=== PATIENT | female | born 1930 | race Caucasian/White ===

== ENCOUNTER 2017-03-10 01:25 | Emergency (ER) | payer OTHER, MEDICARE ==
[~2017-03-10 01:25] MED LIST: ATENOLOL25 M1 PO; ATENOLOL25 MG PO; AURALGAN 14 ML14 ML AD; BENAZEPRIL HYDR20 MG PO; CALTRATE 600 +1 EACH PO; CALTRATE 600 +1 TAB PO; COUMADIN3 M1 PO; COUMADIN6 M1 PO; FUROSEMIDE40 M1 PO; KLOR-CON M2020 ME1 PO; LASIX40 M1 PO; LISINOPRIL20 M1 PO; LOVASTATIN40 M1 PO; LOVASTATIN40 MG PO; METFORMIN HCL500 M3 PO; METFORMIN HCL500 MG PO; NORVASC 5MG TAB5 MG PO; PANTOPRAZOLE SO40 M1 PO; PANTOPRAZOLE SO40 MG PO; PROAIR HFA8.5 GM INH; Prinivil PO; SPIRIVA18 MCG INH; TENORMIN50 M1 PO; TRAMADOL HCL50 M1 PO; TRAMADOL HCL50 MG PO; VITAMIN D2000 UNIT PO; WARFARIN SOD2 MG PO; WARFARIN SODIUM1 M1 PO; WARFARIN SODIUM2 MG PO; [UNRECOGNIZED DRUG - OTHER]
[2017-03-10 01:29] VITALS: BP 172/96
--- NOTE | 2017-03-10 01:42 | ED DYSPNEA/ASTHMA COMPLAINT ---
History of Present Illness General Chief Complaint: Dyspnea (COPD, CHF, Other) Stated Complaint: BIBA SOB Source: patient, family, old records, EMS Exam Limitations: no limitations Vital Signs & Intake/Output Vital Signs & Intake/Output Vital Signs Date Time Temp Pulse Resp B/P Pulse O2 O2 Flow FiO2 Ox Delivery Rate 03/10 0134 Room Air 03/10 0129 97.8 66 20 172/96 96 Room Air Allergies Coded Allergies: No Known Allergies (03/10/17) Reconcile Medications Atenolol 25 MG TABLET 2 TAB PO QPM BP (Reported) Calcium Carbonate/Vitamin D3 (Caltrate 600 + D Tablet) 1 EACH TABLET 1 TAB PO DAILY SUPPLEMENT (Reported) Cholecalciferol (Vitamin D3) (Vitamin D) (Unknown Strength) CAPSULE 1 CAP PO DAILY SUPPLEMENT (Reported) Furosemide 40 MG TABLET 1 TAB PO QAM DIURETIC (Reported) Reason to Stop at ADM: POLA Lisinopril 20 MG TABLET 1 TAB PO QAM BP (Reported) Reason to Stop at ADM: POLA Lovastatin 40 MG TABLET 1 TAB PO DAILY CHOLESTEROL (Reported) with food Metformin HCl 500 MG TABLET 1 TAB PO DAILY DIABETES (Reported) Pantoprazole Sodium 40 MG TABLET.DR 1 TAB PO DAILY GI (Reported) Reason to Stop at ADM: CHANGED TO RANITIDINE Tiotropium [place] (Spiriva) 18 MCG CAP.W.DEV 1 CAP INH PRN RESPIRATORY ( Reported) Tramadol HCl 50 MG TABLET 1 TAB PO TID PRN PAIN (Reported) Reason to Stop at ADM: AMS Warfarin Sodium (Coumadin) 6 MG TABLET 1 TAB PO AD BLOOD THINNER (Reported) Reason to Stop at ADM: PER DAILY INR Core Measure Meds Pre-Hospital coumadin Triage Note: [facility] FOR SUDDEN ONSET SOB THAT WOKE HER FROM SLEEP. DENIES SOB ON ARRIVAL, O2 SAT 98% ON RA, DENIES CP/LÓPEZ/DIZZINESS. REQESTING TO GO BACK TO [facility]. LCTA BILATERALLY. Triage Nurses Notes Reviewed? yes Onset: Just prior to arrival Duration: minute(s):, constant, gone now Timing: recent history Severity: moderate Activities at Onset: sleep Prior Episodes/Possible Cause: occasional episodes Modifying Factors: Improves With: rest. LMP (ages 10-50): post menopausal : No Patient currently breastfeeds: No HPI: Prior to admission patient awoke unable to catch her breath now better. She denies fever chills nausea vomiting diarrhea abdominal pain chest pain headache dysuria rash bleeding. Past History Travel History Traveled to [place] past 21 day No Medical History Any Pertinent Medical History? see below for history Neurological: CVA, dementia EENT: cataracts, HARD OF HEARING Cardiovascular: AFIB Respiratory: NONE Gastrointestinal: hiatal hernia Hepatic: NONE Renal: NONE Musculoskeletal: degen joint disease, osteoarthritis, osteoporosis Psychiatric: depression Endocrine: diabetes Blood Disorders: NONE Cancer(s): NONE FUNDS TRANSFER CLERK/Reproductive: NONE Other Medical Hx: atrial fibrillation and status post ablation with pacemaker currently on warfarin, diabetes, CK D, stroke, osteoarthritis and hyperlipidemia History of MRSA: No History of VRE: No History of CDIFF: No Tetanus Vaccine: 04/20/13 Surgical History Surgical History: PACEMAKER Psychosocial History Who do you live with Daughter Services at Home None What is your primary language Lib[place] Tobacco Use: Quit >30 days ago Family History Family History, If Any: Relation not specified for: *No pertinent family history Hx Contributory? No Review of Systems Review of Systems Constitutional: Reports: no symptoms. EENTM: Reports: no symptoms. Respiratory: Reports: see HPI, short of breath. Cardiovascular: Reports: no symptoms. GI: Reports: no symptoms. Genitourinary: Reports: no symptoms. Musculoskeletal: Reports: no symptoms. Skin: Reports: no symptoms. Neurological/Psychological: Reports: no symptoms. Hematologic/Endocrine: Reports: no symptoms. Immunologic/Allergic: Reports: no symptoms. All Other Systems: Reviewed and Negative Physical Exam Physical Exam General Appearance: well developed/nourished, alert, awake, anxious, comfortable Head: atraumatic, normal appearance Eyes: Bilateral: normal appearance, PERRL, EOMI. Ears, Nose, Throat: normal pharynx, normal ENT inspection Neck: normal inspection, supple, full range of motion, no midline tenderness Respiratory: normal breath sounds, chest non-tender, no respiratory distress, quiet respiration, lungs clear Cardiovascular: regular rate/rhythm, normal peripheral pulses, norml femoral pulses equa Peripheral Pulses: 4+ carotid (R), 4+ carotid (L) Gastrointestinal: normal bowel sounds, soft, non-tender, no organomegaly Extremities: normal inspection, normal capillary refill, normal range of motion, no edema Neurologic/Psych: no motor/sensory deficits, awake, alert, normal mood/affect, termite helper II-XII nml as tested Skin: intact, normal color, warm/dry Lymphatic: no anterior cervical anika Core Measures ACS in differential dx? No Severe Sepsis Present: No Septic Shock Present: No Progress Differential Diagnosis: CHF, COPD, pneumonia Plan of Care: Discharge Pre-Hospital EKG: AFIB Initial ED EKG: none Rhythm Strip: atrial fibrillation Departure Departure Time of Disposition: 140 Disposition: HOME OR SELF CARE Condition: Stable Clinical Impression Primary Impression: Dyspnea Qualifiers: Dyspnea type: unspecified Qualified Code: R06.00 - Dyspnea, unspecified Referrals: LORENZA UNDERWOOD,BREANNA Alfaro (PCP/Family) Departure Forms: Customer Survey General Discharge Information Critical Care Note Critical Care Note Critical Care Time: non-applicable
== END 2017-03-10 02:22 ==
LOC: ERH 01:25
DX: R06.00 Dyspnea, unspecified (principal)